=== PATIENT | female | born 1950 | race Two or more races ===

== ENCOUNTER 2018-10-18 10:30 | Day surgery (SDC) | payer OTHER | END 2018-10-18 15:25 | disposition home or self-care (01) | LOC: AMB-ENDOS 10:30 | DX: K64.8 Other hemorrhoids (principal) ==

== ENCOUNTER 2021-03-18 22:15 | Inpatient (IN) | payer OTHER ==
[~2021-03-18] VITALS: Ht 167.6 cm; Wt 85.3 kg
[2021-03-20] MEDS ORDERED: PRIMIDONE50 MG (08:11)
[2021-03-20] MEDS ORDERED: VASOTEC20 MG (08:11)
[2021-03-20] MEDS ORDERED: HYDROCHLOROTH12.5 MG (08:11)
[2021-03-20] MEDS ORDERED: VERAPAMIL ER240 MG (08:11)
[2021-03-20] MEDS ORDERED: LATANOPROST2.5 ML (08:11)
[2021-03-20] MEDS ORDERED: QUETIAPINE FUMA25 MG (08:12)
[2021-03-20] MEDS ORDERED: FAMOTIDINE40 MG (08:12)
[2021-03-20] MEDS ORDERED: ALPRAZOLAM1 MG (08:12)
[2021-03-20] MEDS ORDERED: LAMOTRIGINE100 MG (08:12)
[2021-03-20] MEDS ORDERED: CLONAZEPAM1 MG (08:12)
[2021-03-20] MEDS ORDERED: RESTASIS1 EACH (08:12)
[2021-03-20] MEDS ORDERED: FLUOROMETHOLONE5 ML (08:12)
[2021-03-20] MEDS ORDERED: IRBESARTAN300 MG (08:12)
[2021-03-20] MEDS ORDERED: DESLORATADINE5 MG (08:13)
[2021-03-24] MEDS ORDERED: DICY20TA PO (09:48)
[2021-03-24] MEDS ORDERED: INTESTINEX680 M1 PO (09:48)
== END 2021-03-24 14:43 | disposition home or self-care (01) | DRG 390 ==
LOC: ER 22:15 → SURH 03-19 10:10
PROVIDERS: ADMIT Surgery; ATTEND Surgery
PROC: BW21YZZ Computerized Tomography (CT Scan) of Abdomen and Pelvis using Other Contrast (ICD-10-PCS; 2021-03-19)
PROC: 02HV33Z Insertion of Infusion Device into Superior Vena Cava, Percutaneous Approach (ICD-10-PCS; principal; 2021-03-21)
DX: K56.699 Other intestinal obstruction unspecified as to partial versus complete obstruction (principal); K57.30 Diverticulosis of large intestine without perforation or abscess without bleeding; R10.9 Unspecified abdominal pain; I10 Essential (primary) hypertension; E66.8 Other obesity; Z20.822 Contact with and (suspected) exposure to COVID-19

== ENCOUNTER 2024-05-16 12:34 | Emergency (ER) | payer OTHER ==
[~2024-05-16] VITALS: Ht 162.6 cm; Wt 71.7 kg
[~2024-05-16 12:34] MED LIST: ALPRAZOLAM1 MG; CLONAZEPAM1 MG; DESLORATADINE5 MG; DICY20TA PO; FAMOTIDINE40 MG; FLUOROMETHOLONE5 ML; HYDROCHLOROTH12.5 MG; INTESTINEX680 M1 PO; IRBESARTAN300 MG; LAMOTRIGINE100 MG; LATANOPROST2.5 ML; PRIMIDONE50 MG; QUETIAPINE FUMA25 MG; RESTASIS1 EACH; VASOTEC20 MG; VERAPAMIL ER240 MG
[2024-05-16] MEDS ORDERED: MORPHINE SULFATE 2 MG/ML SYRINGE IV ONE (12:45)
[2024-05-16] MEDS ORDERED: 0.9 % SODIUM CHLORIDE 500 ML IV SCH (12:45)
[2024-05-16] MEDS ORDERED: PROPOFOL 10,000 MCG/ML VIAL IV PUSH ONE (13:45)
[2024-05-16] MEDS ORDERED: FLUMAZENIL 0.5 MG/5 ML ML IV ONE (13:50)
[2024-05-16] MEDS ORDERED: PROPOFOL 10,000 MCG/ML VIAL ONE (13:51)
== END 2024-05-16 17:33 | disposition home or self-care (01) ==
LOC: ER 12:34
DX: S43.084A Other dislocation of right shoulder joint, initial encounter (principal); W19.XXXA Unspecified fall, initial encounter; Y93.89 Activity, other specified; Y92.89 Other specified places as the place of occurrence of the external cause; Y99.8 Other external cause status; I10 Essential (primary) hypertension; Z88.1 Allergy status to other antibiotic agents
CPT/HCPCS: 23650; 29105; 70450; 72125; 73020; 73030; 96365; 96366; 99284; J2270; J3490; J7042